=== PATIENT | female | born 1975 | race Caucasian/White ===

== ENCOUNTER → 2023-04-27 14:04 | Outpatient (REF) | payer BC, SELFPAY | LOC: WDC 14:04 | PROVIDERS: ATTENDING PHYSICIAN Internal Medicine | DX: Z12.31 Encounter for screening mammogram for malignant neoplasm of breast (principal) | CPT/HCPCS: 77063; 77067 ==

== ENCOUNTER → 2023-05-09 13:36 | Outpatient (REF) | payer BC, SELFPAY | LOC: RAD 13:36 | PROVIDERS: ATTENDING PHYSICIAN Internal Medicine | DX: D17.1 Benign lipomatous neoplasm of skin and subcutaneous tissue of trunk (principal) | CPT/HCPCS: 76700 ==

== ENCOUNTER → 2023-06-06 10:38 | Outpatient (REF) | payer BC, SELFPAY | LOC: RAD 10:38 | PROVIDERS: ATTENDING PHYSICIAN Internal Medicine | DX: Z00.00 Encounter for general adult medical examination without abnormal findings (principal); D25.9 Leiomyoma of uterus, unspecified; N83.201 Unspecified ovarian cyst, right side; N83.209 Unspecified ovarian cyst, unspecified side | CPT/HCPCS: 76830; 76856 ==

== ENCOUNTER 2024-01-02 06:21 | Day surgery (SDC) | payer SELFPAY, BC ==
[2023-12-24 10:32] VITALS: BMI 29.1
[2023-12-24 11:14] LABS: % Eosinophils 3.3 % (0-6); % Immature Granulocytes 0.4 % (0-0.5); % Monocytes 11.4 % (1.7-9.3); % Neutrophils 62.9 % (42.2-75.2); Absolute Basophils 0.1 10^3/uL (0-0.2); Absolute Eosinophils 0.2 10^3/uL (0-0.7); Absolute Lymphocytes 1.1 10^3/uL (1.2-3.4); Absolute Monocytes 0.6 10^3/uL (0.1-0.6); Absolute Neutrophils 3.2 10^3/uL (1.4-6.5); Hemoglobin 13.9 g/dL (12.0-16.0); Mean Corp Hgb Conc. 34.8 g/dL (33.0-37.0); Mean Corpuscular Hgb 33.4 pg (27.0-31.0); Mean Corpuscular Volume 96.2 fL (81.0-99.0); Mean Platelet Volume 9.5 fL (7.4-10.4); Nucleated Red Blood Cells % 0 %; Platelet Count 274 10^3/uL (130-400); Red Blood Cell Count 4.16 10^6/uL (4.20-5.40); Red Cell Dist. Width 11.4 % (11.5-14.5); White Blood Cell Count 5.1 10^3/uL (4.8-10.8)
[2023-12-24 11:47] LABS: ALT (SGPT) 26 U/L (0-35); AST (SGOT) 30 U/L (14-36); Albumin 4.3 g/dl (3.5-5.0); Alkaline Phosphatase 54 U/L (38-126); Blood Urea Nitrogen 11 mg/dl (7-17); Calcium 9.2 mg/dl (8.4-10.2); Carbon Dioxide 26 mmol/L (22-30); Chloride 100 mmol/L (98-107); Estimated Creatinine Clearance 95 ml/min; Glucose 97 mg/dl (70-99); Potassium 4.8 mmol/L (3.5-5.1); Sodium 136 mmol/L (135-145); Total Bilirubin 0.6 mg/dl (0.2-1.3); Total Protein 6.6 g/dl (6.3-8.2); eGFR > 60.00
[2024-01-02] VITALS (11 sets, daily range): BP systolic 93–127; BP diastolic 59–75; BMI 29.1
[2024-01-02] MEDS: TYLENOL 1000 MG PO (10:33)
--- NOTE | 2024-01-02 11:43 | W.SUR.PREOP ---
Pre-Operative Surgical Note
-
I have examined this patient prior to the performance of the scheduled procedure.
The patient's condition is unchanged from the time of the current History and
Physical and the patient is able to undergo the scheduled procedure.
--- NOTE | 2024-01-02 14:15 | W.IMMPOSTOP ---
Surgical Immed Post Op Note
-
Primary Surgeon: Kathy
Assisting Surgeon: None
Pre-op Diagnosis: Epigastric Ventral Hernia
Post-op Diagnosis: Epigastric Ventral Hernia 2cm
Procedure Performed: Open VHR with mesh; VentralexST 6.4cm round
Anesthesia Type: GETA
Specimen / Cultures: none
Estimated Blood Loss: 4mL
Complications: none
Operative Findings: Epigastric Ventral Hernia ~2cm containing preperitoneal fat/falciform. underlay preperitoneal repair, VentralexST 6.4 cm round secured with 0 PDS and closure of defect with 0 PDS.
[2024-01-02] MEDS: ZOFRAN 4 MG IV (17:18)
--- NOTE | 2024-01-02 17:52 | W.IMMPOSTOP ---
Surgical Immed Post Op Note
-
Primary Surgeon: MICKI Orlando MD
Assisting Surgeon:
Pre-op Diagnosis: Elective cosmetic procedure
Post-op Diagnosis: Same
Procedure Performed: Lipo abdominoplasty and rectus plication
Anesthesia Type: General
Specimen / Cultures: None
Estimated Blood Loss: 30 cc
Complications: None
Operative Findings: As expected
--- NOTE | 2024-01-02 17:53 | OR.RPT ---
Operative Report
Operative Report
Date of surgery: 01/02/2024
Surgeon: MICKI Orlando MD
Preoperative diagnosis: Lipodystrophy, unacceptable cosmetic appearance, ventral abdominal hernia
Postoperative diagnosis: Same
Procedure:
1. Abdominoplasty with diastases repair
2. Suction assisted lipectomy of the abdomen and flanks
Anesthesia: General
Complications: None
EBL: 30 cc
Indications for procedure: Patient is a 48-year-old female with a history of prior C-sections and also laparoscopic abdominal surgery who presented with an upper epigastric hernia. She was seen by Dr. Chavez in consultation and a plan was made for
repair. On exam it was clear that she had a large diastases and relative skin excess associated lipodystrophy. She presented to my office for consultation about cosmetic elective body contouring at the same time as her ventral hernia repair.
Discussion was had about the risk benefits and alternatives including the anticipated pre and postoperative course. Risk include VTE, wound healing, infection, hematoma, seroma, need for repeat procedure, umbilical , irregular scar formation.
She understood these risk desired to proceed.
Procedure in detail: Patient was identified preoperatively and the surgical site was confirmed to be the abdomen and flanks. All questions were answered and consents were confirmed. Patient was then taken back to the operating placed supine on
table. A Archibald catheter was placed and the patient was prepped and draped in the usual sterile fashion using ChloraPrep solution. Timeout for patient safety was performed was confirmed that bilateral SCDs were in place and preoperative antibiotics
have been administered. Tumescent solution was injected into the proposed incisions and along the superior skin flap. Conscious decision not to perform liposuction over the anterior abdomen was made as the ventral hernial defect was present. That
said it was only fat-containing. As such the low transverse incision incision was made as previously marked and this was carried down using a sups carpal sparing technique over the inguinal regions. The remainder of the dissection was performed on
the abdominal wall fascia to the level of the umbilicus. At this point a vertical incision was made in the skin flap and the umbilicus was freed from the surrounding tissues being sure to maintain its vascularity. Dissection continued superiorly
elucidating a significant midline diastases. In the epigastric region, the surgery progress with the aid of Dr. Chavez to identify the hernia sac and dissected free. His operative report will be dictated separately. The ventral defect was
identified and the fat-containing hernia was reduced. Mesh was placed per Dr. Chavez's operative report. Following this repair, I resumed with the diastases repair with a #1 barbed PDS. This restored the alignment of the rectus muscles. Prior
to running the barbed PDS, a series of 2-0 Vicryl were used in a [id number] fashion to reapproximate and imbricate the rectus fascia. Lipo dissection was then performed off of suction via the saldahna technique to preserve perforators and
vascular perfusion to the skin flap. Patient was then flexed at the waist and was confirmed at the markings preoperatively would allow for tension-free closure and adequate skin resection. The skin was resected accordingly and the wound
tentatively closed. Additional tumescent solution was then applied to the bilateral lateral flanks. A series of oh barbed sutures were placed as progressive tension sutures from the abdominal wall fascia to the deep aspect of the overlying skin
flap. The new position of the umbilicus was marked on the skin flap while flexed. The wound was then closed in layers over a drain using 2-0 Vicryl and Odalys's followed by the INSORB stapler and 3-0 Monocryl followed by a barbed 3-0 Monocryl
subcuticular stitch. At this point additional liposuction was performed over the obliques and lateral flanks. After an adequate contoured been achieved, an incision was made in the new umbilical position and the umbilicus was inset with a series
of 3-0 Monocryl and 5-0 nylon. Patient tolerated the procedure well, as before without complication, all counts were correct at the end of the case. The wounds were dressed with bacitracin, dry gauze, Tegaderm and an abdominal binder was placed.
She was extubated taken the PACU for further care.
[2024-01-02] MEDS: COMPAZINE 5 MG IV (19:00)
== END 2024-01-02 19:37 | disposition home or self-care (01) ==
LOC: COSMETIC 06:21
PROVIDERS: ATTENDING PHYSICIAN Surgery Plastic and Reconstructive Surgery; FAMILY PHYSICIAN Internal Medicine; REFERRING PHYSICIAN Surgery
DX: Z41.1 Encounter for cosmetic surgery (principal); E88.1 Lipodystrophy, not elsewhere classified; K43.9 Ventral hernia without obstruction or gangrene; L98.7 Excessive and redundant skin and subcutaneous tissue; Z98.891 History of uterine scar from previous surgery
CPT/HCPCS: 15830; 49591; 15877; 36415; 80053; 85025; 93005; C1781

== ENCOUNTER → 2024-05-09 13:24 | Outpatient (REF) | payer BC, SELFPAY | LOC: WDC 13:24 | PROVIDERS: ATTENDING PHYSICIAN Internal Medicine | DX: Z12.31 Encounter for screening mammogram for malignant neoplasm of breast (principal) | CPT/HCPCS: 77063; 77067 ==

== ENCOUNTER → 2024-06-20 13:05 | Outpatient (REF) | payer BC, SELFPAY | LOC: HWRAD 13:05 | PROVIDERS: ATTENDING PHYSICIAN Obstetrics & Gynecology; FAMILY PHYSICIAN Internal Medicine | DX: N92.0 Excessive and frequent menstruation with regular cycle (principal); R93.89 Abnormal findings on diagnostic imaging of other specified body structures; D25.9 Leiomyoma of uterus, unspecified | CPT/HCPCS: 76830; 76856 ==